=== PATIENT | female | born 1975 | race Caucasian/White ===

== ENCOUNTER 2018-06-10 11:37 | Day surgery (SDC) | payer OTHER ==
[2018-06-09 10:41] VITALS: BMI 26.6
[2018-06-10] MEDS ORDERED: Oxymetazoline HCl 0.05% ( 15 ML ) ONE ×2 (11:53→13:22)
[2018-06-10] MEDS ORDERED: Midazolam HCl 2 mg/2 ml Vial ONE (12:43)
[2018-06-10] MEDS ORDERED: Meperidine HCl/PF 25 MG/ML VIAL ONE (13:21)
[2018-06-10] MEDS ORDERED: Fentanyl 100 MCG/2 ML VIAL ONE ×4 (13:21→15:27)
[2018-06-10] MEDS ORDERED: Famotidine/PF 20 mg/2ml Vial ONE (13:21)
[2018-06-10] MEDS ORDERED: Bacitracin Zinc Ointment 30 gm TUBE ONE (13:22)
[2018-06-10] MEDS ORDERED: Lidocaine 1% w/Epinephrine 1:100K 30 ML VIAL ONE (13:22)
[2018-06-10] MEDS ORDERED: HYDROmorphone 2 MG/ML VIAL ONE (14:48)
[2018-06-10] MEDS ORDERED: PROPOFOL 200 MG/20 ML VIAL ONE (17:01)
[2018-06-10] MEDS ORDERED: Dexamethasone 20 MG/5 ML VIAL ONE (17:01)
[2018-06-10] MEDS ORDERED: Succinylcholine Chloride 20 MG/ML 10 ml SYRINGE FS ONE (17:01)
[2018-06-10] MEDS ORDERED: Ondansetron PF 4 MG/2 ML Vial ONE (17:01)
[2018-06-10] MEDS ORDERED: Lidocaine 1% PF 5 ML VIAL ONE (17:01)
--- NOTE | 2018-06-11 08:07 | OP ---
DATE OF PROCEDURE: 06/10/2018 PREOPERATIVE DIAGNOSES: 1. Chronic rhinosinusitis. 2. Nasal septal deviation. 3. Bilateral inferior turbinate hypertrophy. 4. Nasal obstruction. POSTOPERATIVE DIAGNOSES: 1. Chronic rhinosinusitis. 2. Nasal septal deviation. 3. Bilateral inferior turbinate hypertrophy. 4. Nasal obstruction. PROCEDURES: 1. Bilateral endoscopic sinus surgery, total ethmoidectomies. 2. Bilateral endoscopic sinus surgery, maxillary antrostomies. 3. Bilateral endoscopic sinus surgery, frontal sinusotomies. 4. Nasal septoplasty. 5. Bilateral inferior turbinate submucosal resection. SURGEON: Dr. Sesar Bright ESTIMATED BLOOD LOSS: 20 mL. COMPLICATIONS: None. ANESTHESIA: GETA. PROCEDURE IN DETAIL: Patient was taken to the operating room and placed supine on the table. General endotracheal anesthesia was obtained by the Anesthesia staff. Tube was secured in the left lower lip. Patient was then placed in the beach chair position, and Afrin pledgets were placed in the nasal cavity. Injections of 1% lidocaine with 1:100,000 epinephrine were made into the nasal septum as well as the inferior turbinates. [facility] and [facility] in standard surgical fashion for nasal surgery. Following this, the Afrin pledgets were removed. A Ki llian incision was made on the left nasal septum. Submucoperichondrial dissection was performed. The deviated portions of the septum included portions of the cartilage and the bony septum. These isolate d areas were removed using three cutting rongeurs. There was noted to be a large dorsal and caudal stru t, left intact for support of the nose. The mucoperichondrial flaps were then reapproximated using a 4-0 gut stitch. Any straight pieces of cartilage were crushed prior to this and placed between the mucoperichondrial flaps. Following this, the inferior turbinates were then punctured with a submucosa l coblation wand, and submucosal coblations were performed of multiple areas of the inferior portion of the anterior inferior turbinate. Please note that the submucosal microdebrider was used to submucosally resect the anterior and inferi or portions of the inferior turbinates bilaterally. On the meatus, the middle turbinate were gently medialized bilaterally using the [place] elevator. Following this, the uncinate process was identified bilaterally and was anteriorly fractured using the ball-ended probe. Following this, the uncinate w as removed using the 0 degree microdebrider and upbiting Blakesley forceps bilaterally. Following th is, the natural maxillary sinus ostia was visualized and palpated using the ball-ended probe and was gently widened using the curved microdebrider and straight Blakesley forceps bilaterally. Following this, the ethmoidal bulla was identified bilaterally and was punctured on its medial and inferior asp ect using the straight microdebrider. The ethmoidal bulla was then opened along the anterior ethmoid al cells using the 0 degree microdebrider and upbiting Blakesley forceps. Following this, the grand lamella was identified and was punctured into the posterior ethmoidal cells. Working from posterior to anterior, the ethmoidal cells were opened in a mucosal-sparing technique. Following this, the 45 degree microdebrider blade and the 30 degree endoscope was used to visualize the frontal sinus recess and frontal sinus ostia. This frontal sinus ostia was widened bilaterally using the curved microdeb rider. Following this, the nasal cavity was irrigated. MeroPacks were placed. Wu splints were p laced and secured. The patient tolerated the procedure well.
== END 2018-06-10 16:52 | disposition home or self-care (01) ==
LOC: SDC 11:37
PROVIDERS: ATTEND Otolaryngology Plastic Surgery within the Head & Neck
PROC: 09BU8ZZ Excision of Right Ethmoid Sinus, Via Natural or Artificial Opening Endoscopic (ICD-10-PCS; principal; 2018-06-10)
PROC: 09BV8ZZ Excision of Left Ethmoid Sinus, Via Natural or Artificial Opening Endoscopic (ICD-10-PCS; principal; 2018-06-10)
PROC: 09BM8ZZ Excision of Nasal Septum, Via Natural or Artificial Opening Endoscopic (ICD-10-PCS; principal; 2018-06-10)
PROC: 09BL8ZZ Excision of Nasal Turbinate, Via Natural or Artificial Opening Endoscopic (ICD-10-PCS; principal; 2018-06-10)
DX: J32.4 Chronic pansinusitis (principal); J34.2 Deviated nasal septum; J34.3 Hypertrophy of nasal turbinates
CPT/HCPCS: 36415; 85014; 96374; 96375; 96376; J0131; J1100; J1170; J2001; J2175; J2250; J2405; J2704; J3010; S0028